=== PATIENT | female | born 1985 | race Hispanic/Latino ===

== ENCOUNTER 2019-09-13 17:57 | Emergency (ER) | payer SELFPAY ==
[2019-09-13 18:28] LABS: APPEARANCE,URINE Cloudy (CLEAR); BILIRUBIN,URINE Negative (NEGATIVE); COLOR,URINE Yellow (YELLOW); GLUCOSE, URINE (UA) Negative (NEGATIVE); KETONES,URINE Negative (NEGATIVE); LEUKOCYTE ESTERASE ,URINE Small (NEGATIVE); NITRATE,URINE Negative (NEGATIVE); OCCULT BLOOD,URINE Negative (NEGATIVE); PROTEIN,URINE Negative (NEGATIVE)
[2019-09-13 18:32] LABS: HCG,QUAL RESULT NEGATIVE (NEGATIVE)
[2019-09-13 18:42] LABS: BACTERIA,URINE Moderate /HPF (None Seen); RBC,URINE 0-1 /HPF (0-1); SQUAMOUS EPITHELIAL CELL,UR Moderate /HPF (0-2)
[2019-09-13 18:43] LABS: AMORPHOUS SEDIMENT,UR Rare /LPF (None Seen)
[2019-09-13] MEDS ORDERED: SODIUM CHLORIDE 0.9% 1000ML 1,000 ML IV ONE (19:06)
[2019-09-13] MEDS ORDERED: KETOROLAC TROMETHAMINE 15MG/ML ONE (19:06)
[2019-09-13 19:29] LABS: BASOPHILS % (AUTO) 0.3 % (0.0-5.0); EOSINOPHILS % (AUTO) 0.4 % (0.0-8.0); HEMATOCRIT 38.8 % (36-48); LYMPHOCYTES % (AUTO) 33.6 % (21.0-51.0); MEAN CORPUSCULAR HEMOGLOBIN 31.6 pg (27.0-33.0); MEAN CORPUSCULAR HGB CONC 35.2 g/dL (32.0-36.0); MEAN CORPUSCULAR VOLUME 89.8 fL (79-99); MONOCYTES % (AUTO) 5.9 % (3.0-13.0); NEUTROPHILS % (AUTO) 59.8 % (40.0-77.0); PLATELET COUNT (AUTO) 249 K/uL (130-400); RED BLOOD CELL COUNT(AUTO) 4.33 MIL/uL (4.00-5.50); RED CELL DISTRIBUTION WIDTH 12.6 % (11.0-15.5); WHITE BLOOD COUNT (AUTO) 7.2 K/uL (4.8-10.8)
[2019-09-13 19:47] LABS: CREATININE 0.8 mg/dL (0.5-1.5); POTASSIUM 4.2 mmol/L (3.5-5.1)
[2019-09-13 19:51] LABS: ALBUMIN 3.9 g/dL (3.5-5.0); BILIRUBIN,TOTAL 0.2 mg/dL (0.2-1.0); TOTAL PROTEIN, SERUM 7.9 g/dL (6.0-8.3)
[2019-09-13] MEDS ORDERED: CEFTRIAXONE SODIUM 1 GM ONE (20:22)
== END 2019-09-13 21:23 | disposition home or self-care (01) ==
LOC: EDH 17:57
DX: N39.0 Urinary tract infection, site not specified (principal); R10.2 Pelvic and perineal pain; N83.202 Unspecified ovarian cyst, left side
CPT/HCPCS: 36415; 76856; 80053; 81001; 81025; 85025; 87088; 96374; 96375; 99285; J0696; J1885; J7030